=== PATIENT | male | born 1965 | race African-American/Black ===

== ENCOUNTER 2022-01-26 10:49 | Emergency (ER) | payer OTHER, SELFPAY ==
[2022-01-26 11:00] VITALS: BP 134/102; PULSE 86; RESP 18; TEMP 36.6; O2SAT 97; BMI 32.1
--- NOTE | 2022-01-26 11:02 | DI.RAD.S_ITS ---
PROCEDURE: XR CHEST 2V INDICATIONS: cough, congestion, mucus production TECHNIQUE: 2 views of the chest were acquired. COMPARISON: None. FINDINGS: Surgical changes and devices: None. Lungs and pleura: Lungs are clear. No pleural effusions or pneumothorax. Mediastinum: Mediastinal contours are normal. Heart size is normal. Bones and chest wall: No suspicious bony abnormalities. Soft tissues appear unremarkable. IMPRESSION: No acute cardiopulmonary abnormality. Dictated by: Parmjit Fontenot M.D. on 01/26/2022 at 11:39 Approved by: Parmjit Fontenot M.D. on 01/26/2022 at 11:41
[2022-01-26 12:34] VITALS: PULSE 87; RESP 17; TEMP 36.6; O2SAT 97
[2022-01-26 12:51] LABS: Adenovirus Not Detected (Not Detect); B. parapertussis Not Detected (Not Detecte); Bordetella pertussis Not Detected (Not Detecte); Chlamydophila pneumoniae Not Detected (Not Detect); Coronavirus 229E Not Detected (Not Detect); Coronavirus HKU1 Not Detected (Not Detect); Coronavirus NL 63 Not Detected (Not Detect); Coronavirus OC43 Not Detected (Not Detect); Human Metapneumovirus Detected (Not Detect); Human Rhinovirus/Enterovirus Not Detected (Not Detect); Influenza A Not Detected (Not Detect); Influenza B Not Detected (Not Detect); Mycoplasma pneumoniae Not Detected (Not Detect); Parainfluenza Virus 1 Not Detected (Not Detect); Parainfluenza Virus 2 Not Detected (Not Detect); Parainfluenza Virus 3 Not Detected (Not Detect); Parainfluenza Virus 4 Not Detected (Not Detect); Respiratory Syncytial Virus Not Detected (Not Detect); SARS- CoV-2 Not Detected (Not Detecte)
--- NOTE | 2022-01-26 14:19 | ED_ITS ---
HPI - URI/Sore Throat <BLANCA Kincaid - Last Filed: 01/26/22 14:27> General Chief Complaint: Upper Respiratory Symptoms Stated Complaint: deep congestion 4 days, hear bubbling in chest Time Seen by Provider: 01/26/22 11:21 Source: patient Mode of arrival: Ambulatory History of Present Illness HPI Narrative: This is a 56-year-old male presents to the emergency department with five days of a upper respiratory illness with symptoms including congestion, headache, fever, states that he feels ?lung pain when he takes a deep breath ?. He states his 2-year-old and 4-year-old daughters have viral illnesses. Patient denies any history of asthma, denies smoking, denies COPD. States that his cough is worse in the morning, endorses having nasal drainage, denies any seasonal allergy symptoms. He denies any chest pain, difficulty breathing, denies having fatigue, nausea vomiting or diarrhea. Patient is COVID vaccinated x2, states he took a COVID test this morning it was negative, he also took a COVID test four days ago that was negative. Patient states that he has been taking Tylenol if he has had a fever, last time he had a fever was last night, states that he has been using Mucinex for two days and this is been helping. Review of Systems <BLANCA Kincaid - Last Filed: 01/26/22 14:27> Review of Systems Narrative: General: denies fever, chills, malaise, sweats, fatigue Head/Neck: Endorses mild frontal headache, and nasal congestion, denies facial tenderness, neck pain, dizziness Eyes: denies visual changes, eye pain Cardio: denies chest pain, palpitations, edema Respiratory: Endorses having a cough and congestion, states that intermittently he feels like he has a wheeze, denies dyspnea, orthopnea GI: denies abdominal pain, nausea, vomiting, or diarrhea= MSK: denies joint pain, muscle weakness Skin: denies rash, itching, skin lesions or other Neuro: denies numbness, tingling Patient History <BLANCA Kincaid - Last Filed: 01/26/22 14:27> Social History Smoking Status: Never smoker Smoking Status: Never smoker Substance Use Type: does not use Exam <BLANCA Kincaid - Last Filed: 01/26/22 14:27> Narrative Exam Narrative: Independently reviewed vitals signs and nursing notes. General: cooperative, comfortable, in no acute distress, well groomed Head: atraumatic, symmetrical facial expressions Neck: supple Eyes: equal round and reactive, EOMI, conjunctiva normal Nose: nares patent, + rhinorrhea Mouth/Throat: moist mucus membranes Cardiovascular: regular rate and rhythm, no peripheral edema, warm extremities Respiratory: normal effort, able to speak in complete sentences, no audible wheezing, stridor, or rales. No retractions or tachypnea. GI: abdomen soft, nontender to palpation, nondistended, no masses, no exquisite tenderness with exam, without guarding or rebound. MSK: moves all extremities, neurovascularly intact, no weakness, normal tone Skin: brisk capillary refill, no rash, no erythema Neuro: normal speech and cognition, A&O x3 Psych: mental status is grossly normal, congruent mood, normal affect, pleasant and cooperative Initial Vital Signs Initial Vital Signs: Vital Signs Temperature 97.8 F 01/26/22 11:00 Pulse Rate 86 01/26/22 11:00 Respiratory Rate 18 01/26/22 11:00 Blood Pressure 134/102 H 01/26/22 11:00 Pulse Oximetry 97 01/26/22 11:00 <Wood Lemons DO - Last Filed: 01/26/22 15:34> Initial Vital Signs Initial Vital Signs: Vital Signs Temperature 97.8 F 01/26/22 11:00 Pulse Rate 86 01/26/22 11:00 Respiratory Rate 18 01/26/22 11:00 Blood Pressure 134/102 H 01/26/22 11:00 Pulse Oximetry 97 01/26/22 11:00 Course <BLANCA Kincaid - Last Filed: 01/26/22 14:27> Orders Ordered: ED Orders 01/26/22 11:00 Respiratory Panel (Film Array) Stat 01/26/22 11:02 XR chest 2V Stat Vital Signs Vital signs: Vital Signs - 8 hr 01/26/22 11:00 01/26/22 12:34 Temperature 97.8 F 97.8 F Pulse Rate 86 87 Respiratory Rate 18 17 Blood Pressure 134/102 H Pulse Oximetry 97 97 <Wood Lemons DO - Last Filed: 01/26/22 15:34> Orders Ordered: ED Orders 01/26/22 11:00 Respiratory Panel (Film Array) Stat 01/26/22 11:02 XR chest 2V Stat Vital Signs Vital signs: Vital Signs - 8 hr 01/26/22 11:00 01/26/22 12:34 Temperature 97.8 F 97.8 F Pulse Rate 86 87 Respiratory Rate 18 17 Blood Pressure 134/102 H Pulse Oximetry 97 97 MDM - URI/Sore Throat <MICHAEL KincaidP - Last Filed: 01/26/22 14:27> Lab Data Labs: Lab Results 01/26/22 Range/Units 11:00 Chlamy pneumoniae PCR Not detected (Not Detect) Adenovirus (PCR) Not detected (Not Detect) B. pertussis DNA (PCR) Not detected (Not Detecte) B.parapertussis DNA PCR Not detected (Not Detecte) Coronavirus OC43 (PCR) Not detected (Not Detect) Coronavirus HKU1 (PCR) Not detected (Not Detect) Coronavirus 229E (PCR) Not detected (Not Detect) SARS-CoV-2 (PCR) Not detected (Not Detecte) Coronavirus NL63 (PCR) Not detected (Not Detect) Human Metapneumovir PCR Detected H (Not Detect) Influenza Type A (PCR) Not detected (Not Detect) Influenza Type B (PCR) Not detected (Not Detect) M. pneumoniae (PCR) Not detected (Not Detect) Parainfluenza 1 (PCR) Not detected (Not Detect) Parainfluenza 2 (PCR) Not detected (Not Detect) Parainfluenza 3 (PCR) Not detected (Not Detect) Parainfluenza 4 (PCR) Not detected (Not Detect) RSV (PCR) Not detected (Not Detect) Entero/Rhino (PCR) Not detected (Not Detect) Imaging Data Chest x-ray: Radiologist's Impression: PROCEDURE:? XR CHEST 2V ? INDICATIONS:? cough, congestion, mucus production ? TECHNIQUE:? 2 views of the chest were acquired.? ? COMPARISON:? None. ? FINDINGS:? ? Surgical changes and devices:? None.? ? Lungs and pleura:? Lungs are clear.? No pleural effusions or pneumothorax.? ? Mediastinum:? Mediastinal contours are normal.? Heart size is normal.? ? Bones and chest wall:? No suspicious bony abnormalities.? Soft tissues appear unremarkable.? ? IMPRESSION:? No acute cardiopulmonary abnormality. ? ? ? Dictated by: Parmjit Fontenot M.D. on 01/26/2022 at 11:39 ? ? Approved by: Parmjit Fontenot M.D. on 01/26/2022 at 11:41 ? MDM Narrative Medical decision making narrative: This is a 56-year-old male presents to the emergency department with five days of upper respiratory congestion, cough, with a fever last night. He has not had any nausea, vomiting, diarrhea, chills, weakness, dizziness, or other. Patient's respiratory panel is positive for metapneumovirus, his chest x-ray is negative for acute cardiopulmonary abnormality, on exam patient did not have any tachypnea, wheezing, abnormal breath sounds or increased work of breathing. Recommend [id number] symptom management with Flonase, NyQuil, Tylenol or ibuprofen as needed for fever, adequate hydration, and encourage patient to quarantine if he is having a fever. Recommend patient return to the emergency department for new or worsening symptoms or follow-up with his primary care provider if his symptoms are ongoing. Patient is appropriate and amenable to discharge home. Vital signs are stable on repeat examination is unremarkable. Patient has been informed of results. Patient has been given strict return to ER precautions for any new or worsening symptoms. Patient understands to follow up closely with outpatient providers as instructed. Patient understands plan and agrees to discharge home. All questions and concerns answered at this time. <Wood Lemons, - Last Filed: 01/26/22 15:34> Lab Data Labs: Lab Results 01/26/22 Range/Units 11:00 Chlamy pneumoniae PCR Not detected (Not Detect) Adenovirus (PCR) Not detected (Not Detect) B. pertussis DNA (PCR) Not detected (Not Detecte) B.parapertussis DNA PCR Not detected (Not Detecte) Coronavirus OC43 (PCR) Not detected (Not Detect) Coronavirus HKU1 (PCR) Not detected (Not Detect) Coronavirus 229E (PCR) Not detected (Not Detect) SARS-CoV-2 (PCR) Not detected (Not Detecte) Coronavirus NL63 (PCR) Not detected (Not Detect) Human Metapneumovir PCR Detected H (Not Detect) Influenza Type A (PCR) Not detected (Not Detect) Influenza Type B (PCR) Not detected (Not Detect) M. pneumoniae (PCR) Not detected (Not Detect) Parainfluenza 1 (PCR) Not detected (Not Detect) Parainfluenza 2 (PCR) Not detected (Not Detect) Parainfluenza 3 (PCR) Not detected (Not Detect) Parainfluenza 4 (PCR) Not detected (Not Detect) RSV (PCR) Not detected (Not Detect) Entero/Rhino (PCR) Not detected (Not Detect) Discharge Plan Departure Patient Disposition: Home Clinical Impression: Infection due to human metapneumovirus (hMPV) Upper respiratory infection Qualifiers: URI type: acute nasopharyngitis (common cold) Qualified Code(s): J00 - Acute nasopharyngitis [common cold] Instructions: Common Cold, DI for Viral Upper Respiratory Infection -- Adult Activity Restrictions/Additional Instructions: *You have been diagnosed with metapneumovirus, this is a common cold viral respiratory illness that you likely caught from her children. Please support your symptoms as you have them, use Flonase twice a day for your congestion, you may also take Claritin/Zyrtec concurrently. If you have a lot of upper respiratory congestion, you can try Sudafed decongestant, it is available behind the counter at the pharmacy. Please stay hydrated and drink plenty of water, this will help your mucus moved, Mucinex is also helpful to thing your mucus. Please use Tylenol or ibuprofen for fever, please do not go to work if you have a fever, thank you for white you do, and the you for trusting us with your care. Your x-ray does not show any pneumonia. I hope you feel better soon. *What to do: *Please continue to take your regular medications as directed. [ ] New medication prescriptions sent to your pharmacy: [ ] [ ] New medication written as a paper prescription [ x] No new medications given *Please follow up with your primary care provider in 2-3 days, call for an appointment. Let them know you were seen in the Emergency Department and that we asked that you be seen for follow-up. We will electronically transmit a record of today's note if your PCP is in our system *If you do not have a primary care provider please contact [phone] to establish care with one of the [facility] primary care providers. *Return to Emergency Department if you should have any new, worsening or concerning symptoms, such as [fever greater than 101F, chills, worsening pain, persistent vomiting or other bothersome symptoms] Referrals: José Miguel Parmar PA-C [Primary Care Provider] - Visit Report Forms: Patient Portal/API <Wood Lemons DO - Last Filed: 01/26/22 15:34> Cosign ED Attending Coslulature Attestation: Dr Lemons Co-Sign Statement: I was available for consultation during this patient's emergency department visit. This chart is signed by myself for administrative purposes only. I did not have direct contact with this patient during this visit. They were seen independently by the APC.
== END 2022-01-26 12:34 | disposition home or self-care (01) ==
PROVIDERS: Emergency Medicine; Emergency Provider Nurse Practitioner Critical Care Medicine; PCP Physician Assistant
DX: J00 Acute nasopharyngitis [common cold] (principal); B97.81 Human metapneumovirus as the cause of diseases classified elsewhere; Z20.822 Contact with and (suspected) exposure to COVID-19
CPT/HCPCS: 71046; 87633; 99281; 99283

== ENCOUNTER 2024-08-05 21:49 | Emergency (ER) | payer OTHER, SELFPAY ==
--- NOTE | 2024-08-05 21:52 | EKG_ITS ---
[facility] [address] [place] [address] Test Date: 2024-08-05 Pat Name: Jonas Macias Department: [facility] Room: Gender: Male Specimen Transporter: [id number] : 1965 Requested By: Order Number: [id number] Reading MD: Josiah Bush MD Measurements Intervals [place] Rate: 88 P: 55 NE: 140 QRS: -41 QRSD: 110 T: -9 QT: 350 QTc: 423 Interpretive Statements Normal sinus rhythm Left axis deviation Pulmonary disease pattern Moderate voltage criteria for LVH, may be normal variant ( R in aVL , Abhay product ) NO PRIOR TRACING Electronically Signed On 08-06-2024 7:38:25 PST by Josiah Bush MD
[2024-08-05 21:54] VITALS: BP 134/97; PULSE 84; RESP 17; TEMP 36.7; O2SAT 100; BMI 30.2
--- NOTE | 2024-08-05 22:17 | DI.RAD.S_ITS ---
PROCEDURE: XR CHEST 1V INDICATIONS: chest pain TECHNIQUE: One view of the chest was acquired. COMPARISON: [facility], CR, XR CHEST 2 VIEWS, 02/28/2022, 14:21. [facility], CR, XR CHEST 2V, 01/26/2022, 11:14. FINDINGS: Surgical changes and devices: None. Lungs and pleura: Lungs are clear. No pleural effusions or pneumothorax. Mediastinum: Mediastinal contours appear normal. Heart size is normal. Bones and chest wall: No suspicious bony lesions. Overlying soft tissues appear unremarkable. IMPRESSION: No acute cardiopulmonary abnormality is seen. Dictated by: Parmjit Fontenot M.D. on 08/05/2024 at 22:59 Approved by: Parmjit Fontenot M.D. on 08/05/2024 at 23:01
[2024-08-05 22:24] VITALS: PULSE 77; RESP 17; O2SAT 99
[2024-08-05 22:27] VITALS: BP 142/96; PULSE 77; RESP 16; O2SAT 99
[2024-08-05 22:30] VITALS: BP 129/89; PULSE 71; RESP 12; O2SAT 98
[2024-08-05 22:34] LABS: Add Manual Diff / Slide Review NO; Basophils Absolute Auto 0 /uL (0-100); Basophils Percent Auto 0.9 % (0-2); Eosinophils Absolute Auto 100 /uL (0-450); Eosinophils Percent Auto 2.3 % (2-4); Hemoglobin 14.5 g/dL (13.5-17.5); Lymphocytes Absolute Auto 1500 /uL (1100-4500); Lymphocytes Percent Auto 31.4 % (25-40); Mean Corpuscular HGB Conc 33.1 % (30-36); Mean Corpuscular Hemoglobin 30.9 PG (26-34); Mean Corpuscular Volume 93.3 fL (80-100); Monocytes Absolute Auto 300 /uL (0-900); Monocytes Percent Auto 6.8 % (3-14); Neutrophils Absolute Auto 2800 /uL (1500-7000); Neutrophils Percent Auto 58.6 % (50-75); Platelet Count 283 X10^3/uL (150-400); Red Blood Cell Count 4.71 X10^6/uL (4.5-5.9); Red Cell Distribution Width 13.6 % (11.6-14.8); White Blood Cell Count 4.8 X10^3/uL (4.5-11.0)
[2024-08-05 22:40] LABS: INR 0.9 (0.9-1.3); Prothrombin Time 10.7 SECONDS (9.4-12.5)
[2024-08-05 22:43] LABS: PTT Partial Thromboplastin Tim 36 SECONDS (25.1-36.5)
[2024-08-05 22:45] LABS: Alanine Aminotransferase 24 IU/L (<50); Albumin 4.2 g/dL (3.5-5.0); Albumin Globulin Ratio 1.2 (1.0-2.8); Alkaline Phosphatase 72 U/L (38-126); Aspartate Aminotransferase 26 IU/L (17-59); BUN Creatinine Ratio 12.8 (6-22); Bilirubin Total 0.5 mg/dL (0.2-1.3); Blood Urea Nitrogen 14 mg/dL (9-20); Calcium 8.9 mg/dL (8.4-10.2); Carbon Dioxide 27 mmol/L (22-32); Chloride 104 mmol/L (98-107); Creatine Kinase 142 U/L (55-170); Estimated Glomerular Filt Rate > 60 mL/min (>60); Globulin 3.4 g/dL (1.7-4.1); Glucose 98 mg/dL (70-100); HEMOLYSIS < 15 (0-50); Lipase 36 U/L (23-300); Magnesium 2.1 mg/dL (1.6-2.3); Sodium 137 mmol/L (137-145); Total Protein 7.6 g/dL (6.3-8.2)
--- NOTE | 2024-08-05 22:54 | ED.ARRPALP ---
HPI - Arrhythmia/Palpitations General Chief Complaint: Arrhythmia/Palpitations Stated Complaint: NUMBNESS, HEART PAIN Time Seen by Provider: 08/05/24 22:54 Source: patient Mode of arrival: Ambulatory History of Present Illness HPI narrative: 58-year-old male without known history of coronary artery disease reports intermittent palpitation irregular heartbeat sensation, through the day today has had some vague anterior chest discomfort, intermittently feeling he has tingling in his hands and feet. Currently not having any chest discomfort. Denies abdominal pain. Denies pain in his legs. Denies history of blood clots to legs or lungs, no leg pain or swelling symptoms. No injury, trauma, new activities. No drug use. No change in medications. He did not feel particularly anxious. Denies history of blood clotting problems. Related Data Allergies Allergy/AdvReac Type Severity Reaction Status Date / Time lamotrigine Allergy Rash Verified 08/06/24 00:31 Review of Systems Review of Systems Narrative: see HPI Patient History Social History (Reviewed 01/26/22 @ 14:23 by Natalya Franklin [facility]) Smoking Status: Current some day smoker Smoking Status: Current some day smoker tobacco type: cigars Alcohol type: beer and hard liquor Exam Narrative Exam Narrative: GENERAL: Well-developed patient, in mild distress. HEAD: Atraumatic. Normocephalic. EYES: Pupils equal round and reactive. Extraocular motions intact. No scleral icterus. No injection or drainage. ENT: Nose without bleeding, purulent drainage. Throat without erythema, tonsillar hypertrophy or exudate. Airway patent. NECK: Trachea midline. Non tender CARDIOVASCULAR: Regular rate and rhythm without murmurs, gallops, or rubs. RESPIRATORY: Clear to auscultation. Breath sounds equal bilaterally. No wheezes, rales, or rhonchi. GASTROINTESTINAL: Abdomen soft, non-tender, nondistended. EXTREMITIES: No edema or joint tenderness. BACK: Nontender without deformity or crepitance. No flank tenderness. NEURO: AOx3. Motor functions grossly nonfocal SKIN: No rash or erythema of visible areas Initial Vital Signs Initial Vital Signs: Vital Signs Temperature 98.1 F 08/05/24 21:54 Pulse Rate 84 08/05/24 21:54 Respiratory Rate 17 08/05/24 21:54 Blood Pressure 134/97 H 08/05/24 21:54 Pulse Oximetry 100 08/05/24 21:54 Oxygen Delivery Method Room Air 08/05/24 21:54 Course Orders Ordered: ED Orders 08/05/24 21:52 EKG-12 Lead Stat 08/05/24 22:15 Complete Blood Count AUTO DIFF Stat Comprehensive Metabolic Panel Stat D Dimer Stat Lipase Stat Magnesium Stat NT-proBNP (BNP-Adult 18+) Stat PTT Partial Thromboplastin Matty Stat Prothrombin Time INR Stat Troponin & CK Cardiac Panel Stat 08/05/24 22:17 XR chest 1V Stat 08/06/24 00:18 Troponin I Stat Discontinued Medications Aspirin (Aspirin 81 Mg Chew Tab) 324 mg PO NOW ONE Stop: 08/05/24 22:18 Last Admin: 08/06/24 00:29 Dose: Not Given Documented By: NICHO Vital Signs Vital signs: Vital Signs - 8 hr 08/05/24 21:54 08/05/24 22:24 08/05/24 22:27 Temperature 98.1 F Pulse Rate 84 77 77 Respiratory Rate 17 17 16 Blood Pressure 134/97 H Pulse Oximetry 100 99 99 Oxygen Delivery Method Room Air 08/05/24 22:27 08/05/24 22:30 08/05/24 22:30 Temperature Pulse Rate 71 Respiratory Rate 12 Blood Pressure 142/96 H 129/89 Pulse Oximetry 98 Oxygen Delivery Method 08/05/24 23:00 08/05/24 23:30 08/05/24 23:30 Temperature Pulse Rate 76 70 Respiratory Rate 16 16 Blood Pressure 135/87 Pulse Oximetry 98 98 Oxygen Delivery Method 08/06/24 00:00 08/06/24 00:00 08/06/24 00:30 Temperature Pulse Rate 66 73 Respiratory Rate 15 20 Blood Pressure 119/82 Pulse Oximetry 99 99 Oxygen Delivery Method 08/06/24 00:31 08/06/24 00:31 08/06/24 01:00 Temperature Pulse Rate 71 Respiratory Rate 12 Blood Pressure 144/83 H 130/84 Pulse Oximetry 99 Oxygen Delivery Method 08/06/24 01:00 08/06/24 01:41 Temperature Pulse Rate 70 65 Respiratory Rate 12 17 Blood Pressure 123/84 Pulse Oximetry 99 100 Oxygen Delivery Method Room Air MDM - Arrhythmia/Palpitations Lab Data Attestation: I reviewed the patient's lab results. Lab results narrative: White blood cell count 4800, hemoglobin 14.5, platelets adequate. Basic metabolic panel normal. BNP negative nonmeasurable. Troponin negative nonmeasurable. Liver functions unremarkable, lipase negative. 08/05/24 22:15 08/05/24 22:15 Labs: Lab Results 08/05/24 08/06/24 Range/Units 22:15 00:18 WBC 4.8 (4.5-11.0) X10^3/uL RBC 4.71 (4.5-5.9) X10^6/uL Hgb 14.5 (13.5-17.5) g/dL Hct 44.0 (41-53) % MCV 93.3 (80-100) fL MCH 30.9 (26-34) PG MCHC 33.1 (30-36) % RDW 13.6 (11.6-14.8) % Plt Count 283 (150-400) X10^3/uL Neut % (Auto) 58.6 (50-75) % Lymph % (Auto) 31.4 (25-40) % Love % (Auto) 6.8 (3-14) % Eos % (Auto) 2.3 (2-4) % Baso % (Auto) 0.9 (0-2) % Neut # (Auto) 2800 (4048-6752) /uL Lymph # (Auto) 1500 (5504-9219) /uL Love # (Auto) 300 (0-900) /uL Eos # (Auto) 100 (0-450) /uL Baso # (Auto) 0 (0-100) /uL PT 10.7 (9.4-12.5) SECONDS INR 0.9 (0.9-1.3) APTT 36 (25.1-36.5) SECONDS D-Dimer 247 (<500) ng/ml Sodium 137 (137-145) mmol/L Potassium 4.0 (3.4-5.1) mmol/L Chloride 104 (98-107) mmol/L Carbon Dioxide 27 (22-32) mmol/L BUN 14 (9-20) mg/dL Creatinine 1.09 (0.66-1.25) mg/dL Estimated GFR > 60 (>60) mL/min BUN/Creatinine Ratio 12.8 (6-22) Glucose 98 (70-100) mg/dL Calcium 8.9 (8.4-10.2) mg/dL Magnesium 2.1 (1.6-2.3) mg/dL Total Bilirubin 0.5 (0.2-1.3) mg/dL AST 26 (17-59) IU/L ALT 24 (<50) IU/L Alkaline Phosphatase 72 (38-126) U/L Total Creatine Kinase 142 (55-170) U/L Troponin I < 0.012 < 0.012 (0.01-0.034) ng/mL NT-Pro-B Natriuret Pep < 20 (<125) pg/mL Total Protein 7.6 (6.3-8.2) g/dL Albumin 4.2 (3.5-5.0) g/dL Globulin 3.4 (1.7-4.1) g/dL Albumin/Globulin Ratio 1.2 (1.0-2.8) Lipase 36 (23-300) U/L ECG Data Attestation: I personally reviewed and interpreted this ECG as follows: Interpretation: Normal sinus rhythm with rate of 88, no obvious ST segment elevation or depression changes. [place] 140, QRS 110, QTC 423. MDM Narrative Medical decision making narrative: 58-year-old male with intermittent irregular heartbeat sensation, chest discomfort earlier today, intermittent tingling to hands and feet, denies history of anxiety. Screening EKG unremarkable. Initial troponin negative/unmeasurable. Electrolytes unremarkable, glucose normal. Chest x-ray unremarkable. We will repeat interval troponin. Add D-dimer D-dimer negative, await interval troponin. Patient agreeable to this plan. Consider outpatient cardiac monitoring. Repeat troponin negative. Further follow up as an outpatient for now. Discharged home. Return precautions discussed Discharge Plan Departure Patient Disposition: Home Clinical Impression: Heart palpitations, Chest pain, atypical, Tingling in extremities Activity Restrictions/Additional Instructions: Chest discomfort with intermittent tingling of the extremities, of unclear cause. EKG and serial blood tests not suggestive of heart attack. Blood testing not suggestive of abnormal clotting, that might be seen for example with blood clots to the lungs. Chest x-ray negative. Blood testing otherwise negative. Regarding intermittent heart palpitation irregular heart beating sensation, consider cardiac monitoring as an outpatient, such as a ZIO patch or other device, please discussed with your primary care provider who can order an arrange this for you. Contact information also provided for Cardiology on-call to help arrange cardiac monitoring, though you might require referral from your primary care provider. Follow up with your regular provider early next week to coordinate further testing as an outpatient for now. Return to this/nearest emergency department for any change worsening symptoms or any concerns prior Referrals: Peyman Sanchez MD [Physician] - José Miguel Parmar PA-C [Primary Care Provider] - Stand Alone Forms: Patient Portal/API/Survey
[2024-08-05 22:56] LABS: NT-proBNP (BNP-Adult 18+) < 20 pg/mL (<125); Troponin I < 0.012 ng/mL (0.01-0.034)
[2024-08-05 23:00] VITALS: PULSE 76; RESP 16; O2SAT 98
[2024-08-05 23:30] VITALS: BP 135/87; PULSE 70; RESP 16; O2SAT 98
[2024-08-05 23:37] LABS: D Dimer 247 ng/ml (<500)
[2024-08-06] VITALS: BP 119/82; PULSE 66; RESP 15; O2SAT 99
[2024-08-06 00:30] VITALS: PULSE 73; RESP 20; O2SAT 99
[2024-08-06 00:31] VITALS: BP 144/83; PULSE 71; RESP 12; O2SAT 99
[2024-08-06 01:00] VITALS: BP 130/84; PULSE 70; RESP 12; O2SAT 99
[2024-08-06 01:12] LABS: Troponin I < 0.012 ng/mL (0.01-0.034)
[2024-08-06 01:41] VITALS: BP 123/84; PULSE 65; RESP 17; O2SAT 100
== END 2024-08-06 01:46 | disposition home or self-care (01) ==
PROVIDERS: Emergency Provider Emergency Medicine; PCP Physician Assistant
DX: R00.2 Palpitations (principal); R20.2 Paresthesia of skin; R07.89 Other chest pain
CPT/HCPCS: 36415; 71045; 80053; 82550; 83690; 83735; 83880; 84484; 85025; 85379; 85610; 85730; 93005; 93010; 99283; 99284